=== PATIENT | male | born 1960 | race Caucasian/White ===

== ENCOUNTER 2019-03-12 08:30 | Day surgery (SDC) | payer BC, OTHER ==
--- NOTE | 2019-03-08 22:45 | HP ---
DATE OF ADMISSION: 03/12/2019 HISTORY OF PRESENT ILLNESS: This is a 58-year-old male referred from Dr. Gallardo for colonoscopy because of family history of colon cancer occurring in his mother. Last colonoscopy done by Dr. Gallardo in 2010 showed diminutive polyp. The patient has no symptoms, no rectal bleeding, and medical problems are well controlled. CURRENT MEDICATIONS: Per medication reconciliation form. ALLERGIES: Consist of the cefaclor, moxifloxacin, exenatide, has hives and dizziness. SOCIAL HISTORY: Never smoked. No alcohol. REVIEW OF SYSTEMS: No chest pain, shortness of breath, cough, hoarseness, wheezing, fainting, weakness, numbness, convulsions. PAST MEDICAL HISTORY: That of asthma, moderate persistence of bladder spasms, chronic maxillary sinus, diabetes type 2, gastroesophageal reflux disease, personal history of colonic polyps, sleep apnea, hypertension, glaucoma, hypothyroid treated, and has use of CPAP. He has had colonoscopy, shoulder surgery, eye surgery, trabeculectomy, cataract extraction. PHYSICAL EXAMINATION: VITAL SIGNS: Reveals blood pressure 146/84, pulse 112, temperature 99, respirations 16, BMI of 40.4, and O2 sats are 82%. GENERAL: Alert and cooperative. EYES, EARS, NOSE, AND THROAT: Unremarkable. NECK: Supple. No nodes. LUNGS: Clear to auscultation and percussion. HEART: Tones regular rate at the time of this examination. ABDOMEN: Soft. No tenderness or guarding. EXTREMITIES: Normal. No cyanosis. No edema. SKIN: Normal texture. MUSCULOSKELETAL: No gross abnormalities. He ambulates without problem. NEUROLOGIC: Cranial nerves 3-12 intact. Behavior, normal activity. He is overweight. LABORATORY DATA: TSH on 12/18 of this year was 3.3, A1c was 7.5. His hemoglobin was 15.8, white count 8.7, platelet count 169,000. His creatinine was 0.89, BUN is 21, and GFR is 87. ASSESSMENT: Family history of colon cancer, for colonoscopy. PLAN: Discussed the procedure, risks, complications. The patient understands and consents. [facility] /[id number]
[~2019-03-12 08:30] MED LIST: Lactated Ringers 1,000 ML IV SCH; Lidocaine 1%/Sod Bicarbonate in NS 8.4% 1 ML Syringe IDERM PRN; Sodium Chloride 0.9% 10 ML Syringe FLUSH PRN
--- NOTE | 2019-03-12 09:00 | PCM.PREANE ---
Preanesthetic Assessment - Procedure Proposed Procedure: colonoscopy - Anesthesia/Transfusion/Family Hx Anesthesia History: Prior Anesthesia Without Reaction Family History of Anesthesia Reaction: No Transfusion History: No Prior Transfusion(s) - Review of Systems General: No Symptoms Pulmonary: No Symptoms Cardiovascular: No Symptoms Gastrointestinal: No Symptoms Neurological: No Symptoms Other: Reports: Diabetes, Thyroid Problems, Sinus Problem (getting over sinus infection now) - Physical Assessment NPO Status Date: 03/11/19 NPO Status Time: 23:55 Vital Signs: 147/89 98 99% 16 99.3 Height: 5 ft 11 in Weight: 127.822 kg ASA Class: 3 Mental Status: Alert & Oriented x3 Airway Class: Mallampati = 2 Dentition: Reports: Normal Dentition Thyro-Mental Finger Breadths: 3 Mouth Opening Finger Breadths: 2 ROM/Head Extension: Full Lungs: Clear to Auscultation, Normal Respiratory Effort - Allergies Allergies/Adverse Reactions: Allergies Allergy/AdvReac Type Severity Reaction Status Date / Time cefaclor [From Ceclor] Allergy Hives Verified 03/11/19 13:14 exenatide [From Bydureon] Allergy Dizziness Verified 03/11/19 13:14 moxifloxacin [From Avelox] Allergy Anaphylactic Verified 03/11/19 13:14 Shock - Blood Blood Available: No - Acknowledgements Anesthesia Type Planned: MAC Pt an Appropriate Candidate for the Planned Anesthesia: Yes Alternatives and Risks of Anesthesia Discussed w Pt/Guardian: Yes Pt/Guardian Understands and Agrees with Anesthesia Plan: Yes PreAnesthesia Questionnaire HEENT History: Reports: Allergic Rhinitis, Cataract, Glaucoma, Impaired Vision, Sinusitis, Other (See Below) Other HEENT History: pharyngitis, eustachian tube dysfunction, myopia, trabeculectomy, wears glasses Cardiovascular History: Reports: Hypertension, Other (See Below) Other Cardiovascular History: tachycardia Respiratory History: Reports: Asthma (uses inhaler with illness-), Sleep Apnea, SOB, Other (See Below) Other Respiratory History: cough, URI Gastrointestinal History: Reports: Colon Polyp Genitourinary History: Reports: BPH, Other (See Below) Other Genitourinary History: hematuria, incontinence, bladder spasms 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 Musculoskeletal History: Reports: Other (See Below) Other Musculoskeletal History: sciatica, joint pain, rotator cuff sprain, plantar fasical fibromatosis Neurological History: Reports: None Psychiatric History: Reports: Other (See Below) Other Psychiatric History: hypersomnia Endocrine/Metabolic History: Reports: Diabetes, Type II, Hypothyroidism, Obesity /BMI 30+ Hematologic History: Reports: None Immunologic History: Reports: None Oncologic (Cancer) History: Reports: None Dermatologic History: Reports: Other (See Below) Other Dermatologic History: keloid scar, rosacea, rash - Past Surgical History Head Surgeries/Procedures: Reports: None HEENT Surgical History: Reports: Cataract Surgery, Eye Surgery Cardiovascular Surgical History: Reports: None Respiratory Surgical History: Reports: None GI Surgical History: Reports: Colonoscopy Female Surgical History: Reports: None Male Surgical History: Reports: None Endocrine Surgical History: Reports: None Neurological Surgical History: Reports: None Musculoskeletal Surgical History: Reports: None Oncologic Surgical History: Reports: None - SUBSTANCE USE Smoking Status *Q: Never Smoker Tobacco Use Within Last Twelve Months: No Second Hand Smoke Exposure: No Days Per Week of Alcohol Use: 0 Recreational Drug Use History: No - HOME MEDS Home Medications: Home Meds Albuterol Sulfate [Albuterol Sulfate Hfa] 2 puff INH Q4H PRN 03/11/19 [History] Aspirin [Lamoure Aspirin] 81 mg PO DAILY 03/11/19 [History] Bimatoprost [Lumigan 0.03% Ophth Soln] 1 drop EYEBOTH BID 03/11/19 [History] Brinzolamide/Brimonidine Tart [Simbrinza 1%-0.2% Eye Drops] 1 drop EYEBOTH TID 03/11/19 [History] Budesonide/Formoterol [Symbicort 160-4.5 MCG] 2 puff INH BID 03/11/19 [History] Cyclobenzaprine [Flexeril] 10 mg PO TID PRN 03/11/19 [History] Dutasteride/Tamsulosin HCl [Dutasteride-Tamsulosin 0.5-0.4] 1 each PO DAILY 03/19 [History] Empagliflozin [Jardiance] 25 mg PO QAM 03/11/19 [History] Enalapril [Vasotec] 10 mg PO BID 03/11/19 [History] Fluticasone Propionate [Flonase] 1 dose NASBOTH DAILY 03/11/19 [History] Insulin Glargine,Hum.Rec.Anlog [Lantus Solostar] 68 units SQ BEDTIME 03/11/19 [ History] Levothyroxine [Synthroid] 50 mcg PO DAILY 03/11/19 [History] Loratadine [Claritin] 10 mg PO DAILY 03/11/19 [History] Montelukast [Singulair] 10 mg PO DAILY 03/11/19 [History] Netarsudil Mesylate [Rhopressa] 1 drop EYEBOTH BEDTIME 03/11/19 [History] Omeprazole Magnesium [Prilosec Otc] 20 mg PO DAILY 03/11/19 [History] Oxybutynin 5 mg PO DAILY 03/11/19 [History] Rosuvastatin [Crestor] 10 mg PO DAILY 03/11/19 [History] amLODIPine [Norvasc] 5 mg PO DAILY 03/11/19 [History] cycloSPORINE [Restasis] 1 drop EYEBOTH BID 03/11/19 [History] guaiFENesin [Mucinex] 600 mg PO BID PRN 03/11/19 [History] metroNIDAZOLE [Metrocream] 1 dose TOP ASDIRECTED PRN 03/11/19 [History] sitaGLIPtin Phos/Metformin HCl [Janumet 50-1,000 MG] 1 tab PO BID 03/11/19 [ History] - CURRENT (IN HOUSE) MEDS Current Meds: Current Medications Lactated Ringer's (Ringers, Lactated) 1,000 mls @ 125 mls/hr IV ASDIRECTED ENRIQUETA Stop: 03/12/19 23:00 Lidocaine/Sodium Bicarbonate (Buffered Lidocaine 1% In Ns 8.4%) 0.25 ml IDERM ONETIME PRN PRN Reason: Prior to IV Start Stop: 03/12/19 18:00 Sodium Chloride (Saline Flush) 10 ml FLUSH ASDIRECTED PRN PRN Reason: Keep Vein Open Stop: 03/12/19 18:00
[2019-03-12] MEDS ORDERED: Propofol 200 MG/20 ML SDV ONE ×2 (09:50→10:06)
[2019-03-12] MEDS ORDERED: Midazolam 1 MG/ML 2 ML SDV ONE (09:51)
[2019-03-12] MEDS ORDERED: Lidocaine 1% 4 ML ONE (09:52)
--- NOTE | 2019-03-12 10:20 | PCM.OPNOTE ---
- General Post-Op/Procedure Note Date of Surgery/Procedure: 03/12/19 Operative Procedure(s): colonoscopy to cecum Pre Op Diagnosis: screening colonosocopy Post-Op Diagnosis: Same Anesthesia Technique: MAC Primary Surgeon: Arjun Barriga EBL in mLs: 0 Complications: None Condition: Good
--- NOTE | 2019-03-12 10:27 | PCM48HPAN ---
Post Anesthesia Note - EVALUATION WITHIN 48HRS OF ANESTHETIC Vital Signs in Normal Range: Yes Patient Participated in Evaluation: Yes Respiratory Function Stable: Yes Airway Patent: Yes Cardiovascular Function Stable: Yes Hydration Status Stable: Yes Pain Control Satisfactory: Yes Nausea and Vomiting Control Satisfactory: Yes Mental Status Recovered: Yes Vital Signs: 1020 144/83,96,86, 16, 98.2 Last Vital Signs Temp 37.4 C 03/12/19 08:45 Pulse 98 03/12/19 08:45 Resp 16 03/12/19 08:45 BP 147/89 H 03/12/19 08:45 Pulse Ox 99 03/12/19 08:45
--- NOTE | 2019-03-13 09:17 | OR ---
DATE OF OPERATION: 03/12/2019 SURGEON: Arjun Barriga MD PREOPERATIVE DIAGNOSIS: Family history of colon cancer. POSTOPERATIVE DIAGNOSIS: Family history of colon cancer. OPERATION PERFORMED: Colonoscopy to the cecum with removal of diminutive polyp with cautery snare located at the splenic flexure done under IV sedation. FINDINGS: A small diminutive polyp in the splenic flexure, which was on a small stalk, lassoed to cautery snare, retrieved, and sent to pathology. No angiodysplasias, large tumor masses, ulcerations, diverticula, or notable hemorrhoids. ANESTHESIA: Colonoscopy to the cecum with polypectomy done under IV sedation. DESCRIPTION OF PROCEDURE: The patient taken to the endoscopy room, placed in a supine position, connected monitoring equipment, given IV sedation, and placed in the left lateral position. Perianal area was inspected and it was normal. Rectal exam showed good sphincter tone. A video Olympus colonoscope was then introduced into the rectum and threaded up without problem to the cecum, where the appendicular orifice was noted. Prep was excellent. [place] cleansing score grade A, and the scope was slowly withdrawn showing the cecum, ascending colon, transverse colon, descending colon, sigmoid colon, and rectum. At the splenic flexure, there was a small polyp on a stalk that was lassoed with cautery snare, retrieved, and sent to pathology. It was completely removed cleanly. The patient tolerated the procedure, sent to recovery room in a stable condition, and the specimen sent to pathology in a labeled container. The patient will be followed up with his family doctor. ESTIMATED BLOOD LOSS: MMODAL /[id number]
== END 2019-03-12 11:30 | disposition home or self-care (01) ==
LOC: JD.SDS 08:30
PROVIDERS: ATTEND Surgery
DX: Z12.11 Encounter for screening for malignant neoplasm of colon (principal); D12.3 Benign neoplasm of transverse colon; J45.909 Unspecified asthma, uncomplicated; E11.9 Type 2 diabetes mellitus without complications; K21.9 Gastro-esophageal reflux disease without esophagitis; I10 Essential (primary) hypertension; G47.33 Obstructive sleep apnea (adult) (pediatric); E03.9 Hypothyroidism, unspecified; J45.20 Mild intermittent asthma, uncomplicated; Z88.1 Allergy status to other antibiotic agents; Z88.8 Allergy status to other drugs, medicaments and biological substances; Z86.010 Personal history of colon polyps; Z99.89 Dependence on other enabling machines and devices; Z80.0 Family history of malignant neoplasm of digestive organs
CPT/HCPCS: 45385; J2001; J2250; J2704; J7120; 00812

== ENCOUNTER 2020-02-10 15:41 | Emergency (ER) | payer OTHER ==
--- NOTE | 2020-02-10 16:11 | EDM.PDOC ---
ED HPI GENERAL MEDICAL PROBLEM - General Chief Complaint: Respiratory Problem Stated Complaint: SOB/LOW O2(90)/FEVER(106)/COVID+ Time Seen by Provider: 02/10/20 16:10 - History of Present Illness INITIAL COMMENTS - FREE TEXT/NARRATIVE: 59-year-old male presents the emergency room with shortness of breath fever associated with COVID. Patient became ill developing a cough and upper airway congestion this last Monday. Since that time he has had a progressive course is running fevers as high as 100.6. He describes his inability to clear and cough up secretions. He has a frequent cough. He has been exposed to several people in his orthodoxy that have all tested positive. Patient has significant risk factors with obesity and underlying insulin-dependent type 2 diabetes. Earlier today his oxygen monitor at home measured to 90%. He had a couple hours earlier this afternoon where he thought he was getting worse but then that resolved and at this point he really does not feel that bad except he is got pretty frequent cough. - Related Data Allergies Allergy/AdvReac Type Severity Reaction Status Date / Time cefaclor [From Ceclor] Allergy Hives Verified 02/10/20 15:57 exenatide [From Bydureon] Allergy Dizziness Verified 02/10/20 15:57 moxifloxacin [From Avelox] Allergy Anaphylactic Verified 02/10/20 15:57 Shock Home Meds: Home Meds Albuterol Sulfate [Albuterol Sulfate Hfa] 2 puff INH Q4H PRN 03/11/19 [History] Aspirin [[place] Aspirin] 81 mg PO DAILY 03/11/19 [History] Bimatoprost [Lumigan 0.03% [facility] Soln] 1 drop EYEBOTH BID 03/11/19 [History] Budesonide/Formoterol [Symbicort 160-4.5 MCG] 2 puff INH BID 03/11/19 [History] Dutasteride/Tamsulosin HCl [Dutasteride-Tamsulosin 0.5-0.4] 1 each PO DAILY 03/11/19 [History] Empagliflozin [Jardiance] 25 mg PO QAM 03/11/19 [History] Enalapril [Vasotec] 10 mg PO BID 03/11/19 [History] Fluticasone Propionate [Flonase] 1 dose NASBOTH BID 03/11/19 [History] Insulin Glargine,Hum.Rec.Anlog [Lantus Solostar] 80 units SQ BEDTIME 03/11/19 [History] Levothyroxine [Synthroid] 50 mcg PO DAILY 03/11/19 [History] Loratadine [Claritin] 10 mg PO DAILY 03/11/19 [History] Montelukast [Singulair] 10 mg PO DAILY 03/11/19 [History] Netarsudil Mesylate [Rhopressa] 1 drop EYEBOTH BEDTIME 03/11/19 [History] Omeprazole Magnesium [Prilosec Otc] 20 mg PO DAILY 03/11/19 [History] Oxybutynin 5 mg PO DAILY 03/11/19 [History] Rosuvastatin [Crestor] 10 mg PO DAILY 03/11/19 [History] cycloSPORINE [Restasis] 1 drop EYEBOTH BID 03/11/19 [History] guaiFENesin [Mucinex] 600 mg PO BID PRN 03/11/19 [History] metroNIDAZOLE [Metrocream] 1 dose TOP ASDIRECTED PRN 03/11/19 [History] sitaGLIPtin Phos/Metformin HCl [Janumet 50-1,000 MG] 1 tab PO BID 03/11/19 [History] Doxycycline [Doxycycline Hyclate] 100 mg PO Q12HR 02/10/20 [History] amLODIPine [Norvasc] 5 mg PO DAILY 02/10/20 [History] dexAMETHasone [Dexamethasone] 4 mg PO BID #14 tablet 02/10/20 [Rx] timoloL maleate [Timoptic] 1 drop EYEBOTH BID 02/10/20 [History] Past Medical History HEENT History: Reports: Allergic Rhinitis, Cataract, Glaucoma, Impaired Vision, Sinusitis, Other (See Below) Other HEENT History: pharyngitis, eustachian tube dysfunction, myopia, trabeculectomy, wears glasses Cardiovascular History: Reports: Hypertension, Other (See Below) Other Cardiovascular History: tachycardia Respiratory History: Reports: Asthma (uses inhaler with illness-), Sleep Apnea, SOB, Other (See Below) Other Respiratory History: cough, URI Gastrointestinal History: Reports: Colon Polyp Genitourinary History: Reports: BPH, Other (See Below) Other Genitourinary History: hematuria, incontinence, bladder spasms 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 Musculoskeletal History: Reports: Other (See Below) Other Musculoskeletal History: sciatica, joint pain, rotator cuff sprain, plantar fasical fibromatosis Neurological History: Reports: None Psychiatric History: Reports: Other (See Below) Other Psychiatric History: hypersomnia Endocrine/Metabolic History: Reports: Diabetes, Type II, Hypothyroidism, Obesity/BMI 30+ Hematologic History: Reports: None Immunologic History: Reports: None Oncologic (Cancer) History: Reports: None Dermatologic History: Reports: Other (See Below) Other Dermatologic History: keloid scar, rosacea, rash - Past Surgical History Head Surgeries/Procedures: Reports: None HEENT Surgical History: Reports: Cataract Surgery, Eye Surgery Cardiovascular Surgical History: Reports: None Respiratory Surgical History: Reports: None GI Surgical History: Reports: Colonoscopy Female Surgical History: Reports: None Male Surgical History: Reports: None Endocrine Surgical History: Reports: None Neurological Surgical History: Reports: None Musculoskeletal Surgical History: Reports: None Oncologic Surgical History: Reports: None Social & Family History - Caffeine Use Caffeine Use: Reports: Tea ED ROS GENERAL - Review of Systems Review Of Systems: See Below Constitutional: Reports: Fever, Weakness, Fatigue HEENT: Reports: No Symptoms Respiratory: Reports: Shortness of Breath, Cough Cardiovascular: Reports: Dyspnea on Exertion. Denies: Chest Pain GI/Abdominal: Reports: No Symptoms, Abdominal Pain : Reports: No Symptoms Musculoskeletal: Reports: No Symptoms Skin: Reports: No Symptoms Neurological: Reports: No Symptoms Psychiatric: Reports: No Symptoms ED EXAM, GENERAL - Physical Exam Exam: See Below Exam Limited By: No Limitations General Appearance: Alert, No Apparent Distress, Obese, Other (He is tachypneic with respiratory rate of 24 up to 30 at times however is maintaining good O2 saturation he is mildly tachycardic with a pulse of 110-119) Eye Exam: Bilateral Eye: Normal Inspection Ears: Normal External Exam, Normal Canal, Hearing Grossly Normal, Normal TMs Nose: Normal Inspection, Normal Mucosa, No Blood Throat/Mouth: Normal Inspection, Normal Lips, Normal Oropharynx, Normal Voice, No Airway Compromise Head: Atraumatic, Normocephalic Neck: Normal Inspection, Supple, Non-Tender, Full Range of Motion. No: Lymphadenopathy (L), Lymphadenopathy (R) Respiratory/Chest: No Respiratory Distress, Lungs Clear, Normal Breath Sounds Cardiovascular: Regular Rate, Rhythm, No Edema, No Murmur GI/Abdominal: Normal Bowel Sounds, Soft, Non-Tender Rectal (Males) Exam: No: Rectal Fissure Back Exam: Normal Inspection. No: CVA Tenderness (R) Extremities: Normal Inspection, No Pedal Edema Neurological: Alert, Oriented, Normal Cognition Course - Vital Signs Last Recorded V/S: Last Vital Signs Temp 36.9 C 02/10/20 15:50 Pulse 117 H 02/10/20 15:50 Resp 24 H 02/10/20 15:50 BP Pulse Ox 95 02/10/20 15:50 - Orders/Labs/Meds Orders: Active Orders 24 hr Category Date Time Status EKG Documentation Completion [RC] STAT Care 02/10/20 17:39 Active Chest 1V Frontal [CR] Stat Exams 02/10/20 17:37 Taken Sodium Chloride 0.9% [Normal Saline] 1,000 ml Med 02/10/20 18:00 Active IV ASDIRECTED Medication Orders Sodium Chloride (Normal Saline) 1,000 mls @ 75 mls/hr IV ASDIRECTED ENRIQUETA Labs: Laboratory Tests 02/10/20 02/10/20 02/10/20 Range/Units 18:00 18:00 18:00 WBC 6.03 (4.23-9.07) K/mm3 RBC 5.44 (4.63-6.08) M/mm3 Hgb 15.0 (13.7-17.5) gm/dl Hct 44.0 (40.1-51.0) % MCV 80.9 (79.0-92.2) fl MCH 27.6 (25.7-32.2) pg MCHC 34.1 (32.2-35.5) g/dl RDW Std Deviation 43.0 (35.1-43.9) fL Plt Count 184 (163-337) K/mm3 MPV 9.4 (9.4-12.3) fl Neut % (Auto) 76.4 H (34.0-67.9) % Lymph % (Auto) 13.4 L (21.8-53.1) % [place] % (Auto) 9.0 (5.3-12.2) % Eos % (Auto) 0.7 L (0.8-7.0) Baso % (Auto) 0.2 (0.1-1.2) % Neut # (Auto) 4.61 (1.78-5.38) K/mm3 Lymph # (Auto) 0.81 L (1.32-3.57) K/mm3 [place] # (Auto) 0.54 (0.30-0.82) K/mm3 Eos # (Auto) 0.04 (0.04-0.54) K/mm3 Baso # (Auto) 0.01 (0.01-0.08) K/mm3 PT 10.8 (9.7-11.7) SECONDS INR 1.01 APTT 29 (22-31) SECONDS D-Dimer, Quantitative (0.19-0.50) mg/L Sodium 134 L (136-145) mEq/L Potassium 3.9 (3.5-5.1) mEq/L Chloride 96 L (98-107) mEq/L Carbon Dioxide 23 (21-32) mEq/L Anion Gap 18.9 H (5-15) BUN 13 (7-18) mg/dL Creatinine 1.0 (0.7-1.3) mg/dL Est Cr Clr Drug Dosing 82.62 mL/min Estimated GFR (MDRD) > 60 (>60) mL/min BUN/Creatinine Ratio 13.0 L (14-18) Glucose 102 (80-115) mg/dL Calcium 9.3 (8.5-10.1) mg/dL Ferritin (26-388) ng/ml Total Bilirubin 0.5 (0.2-1.0) mg/dL AST 24 (15-37) U/L ALT 30 (16-63) U/L Alkaline Phosphatase 42 L (46-116) U/L Lactate Dehydrogenase 189 (85-227) U/L Troponin I < 0.017 (0.00-0.056) ng/mL C-Reactive Protein 6.6 H* (<1.0) mg/dL Total Protein 7.2 (6.4-8.2) g/dl Albumin 3.4 (3.4-5.0) g/dl Globulin 3.8 gm/dL Albumin/Globulin Ratio 0.9 L (1-2) 02/10/20 02/10/20 Range/Units 18:00 18:00 WBC (4.23-9.07) K/mm3 RBC (4.63-6.08) M/mm3 Hgb (13.7-17.5) gm/dl Hct (40.1-51.0) % MCV (79.0-92.2) fl MCH (25.7-32.2) pg MCHC (32.2-35.5) g/dl RDW Std Deviation (35.1-43.9) fL Plt Count (163-337) K/mm3 MPV (9.4-12.3) fl Neut % (Auto) (34.0-67.9) % Lymph % (Auto) (21.8-53.1) % [place] % (Auto) (5.3-12.2) % Eos % (Auto) (0.8-7.0) Baso % (Auto) (0.1-1.2) % Neut # (Auto) (1.78-5.38) K/mm3 Lymph # (Auto) (1.32-3.57) K/mm3 [place] # (Auto) (0.30-0.82) K/mm3 Eos # (Auto) (0.04-0.54) K/mm3 Baso # (Auto) (0.01-0.08) K/mm3 PT (9.7-11.7) SECONDS INR APTT (22-31) SECONDS D-Dimer, Quantitative 0.38 (0.19-0.50) mg/L Sodium (136-145) mEq/L Potassium (3.5-5.1) mEq/L Chloride (98-107) mEq/L Carbon Dioxide (21-32) mEq/L Anion Gap (5-15) BUN (7-18) mg/dL Creatinine (0.7-1.3) mg/dL Est Cr Clr Drug Dosing mL/min Estimated GFR (MDRD) (>60) mL/min BUN/Creatinine Ratio (14-18) Glucose (80-115) mg/dL Calcium (8.5-10.1) mg/dL Ferritin 257 (26-388) ng/ml Total Bilirubin (0.2-1.0) mg/dL AST (15-37) U/L ALT (16-63) U/L Alkaline Phosphatase (46-116) U/L Lactate Dehydrogenase (85-227) U/L Troponin I (0.00-0.056) ng/mL C-Reactive Protein (<1.0) mg/dL Total Protein (6.4-8.2) g/dl Albumin (3.4-5.0) g/dl Globulin gm/dL Albumin/Globulin Ratio (1-2) Meds: Medications Generic Name Dose Route Start Last Admin Trade Name Jennifer PRN Reason Stop Dose Admin Sodium Chloride 1,000 mls @ 75 mls/hr 02/10/20 18:00 Normal Saline IV ASDIRECTED ENRQIUETA Discontinued Medications Generic Name Dose Route Start Last Admin Trade Name Freq PRN Reason Stop Dose Admin Sodium Chloride 500 mls @ 999 mls/hr 02/10/20 17:51 02/10/20 18:46 Normal Saline IV 02/10/20 18:21 999 mls/hr .BOLUS ONE Administration - Re-Assessments/Exams Free Text/Narrative Re-Assessment/Exam: 02/10/20 19:42 Chest x-ray shows some subsegmental atelectasis possible scarring not the greatest inspiration and borderline cardiomegaly. Labs consistent with COVID but not very high d-dimer surprised me was normal. With repositioning the patient is respiratory rate would drop from the upper 20s to low 30s to the lower 20s to upper teens. The patient feels much better in a proper position.. This point will discharge home we will start him on dexamethasone 4 mg twice daily for 7 days Departure - Departure Time of Disposition: 19:43 Disposition: Home, Self-Care 01 Clinical Impression: COVID-19 - Discharge Information Forms: ED Department Discharge Additional Instructions: Return to the emergency room with any questions problems or worsening symptoms. You have been started on dexamethasone, this is a steroid, take as directed twice daily for 7 days. Keep a close eye on your blood sugars and your oxygen saturation. Sepsis Event Note (ED) - Evaluation Sepsis Screening Result: Possible Sepsis Risk - Focused Exam Vital Signs: Vital Signs Temp Pulse Resp Pulse Ox 02/10/20 15:50 36.9 C 117 H 24 H 95 - My Orders Last 24 Hours: My Active Orders 02/10/20 17:37 Chest 1V Frontal [CR] Stat 02/10/20 17:39 EKG Documentation Completion [RC] STAT 02/10/20 18:00 Sodium Chloride 0.9% [Normal Saline] 1,000 ml IV ASDIRECTED - Assessment/Plan Last 24 Hours: My Active Orders 02/10/20 17:37 Chest 1V Frontal [CR] Stat 02/10/20 17:39 EKG Documentation Completion [RC] STAT 02/10/20 18:00 Sodium Chloride 0.9% [Normal Saline] 1,000 ml IV ASDIRECTED
[2020-02-10] MEDS ORDERED: Sodium Chloride 0.9% 500 ML IV ONE (17:51)
[2020-02-10] MEDS ORDERED: Sodium Chloride 0.9% 1,000 ML IV SCH (18:00)
== END 2020-02-10 20:10 | disposition home or self-care (01) ==
LOC: JD.ED 15:41
DX: U07.1 COVID-19 (principal); I10 Essential (primary) hypertension; J45.909 Unspecified asthma, uncomplicated; N40.0 Benign prostatic hyperplasia without lower urinary tract symptoms; E11.9 Type 2 diabetes mellitus without complications; E03.9 Hypothyroidism, unspecified; E66.9 Obesity, unspecified; Z68.41 Body mass index [BMI] 40.0-44.9, adult; Z88.1 Allergy status to other antibiotic agents; Z79.82 Long term (current) use of aspirin; Z79.4 Long term (current) use of insulin; Z79.899 Other long term (current) drug therapy
CPT/HCPCS: 36415; 71045; 80053; 82728; 83615; 84484; 85025; 85379; 85610; 85730; 86140; 93005; 99285; J7030; 99283

== ENCOUNTER 2020-02-15 12:00 | Emergency (ER) | payer OTHER ==
[2020-02-15] MEDS ORDERED: Sodium Chloride 0.9% 1,000 ML IV ONE (12:57)
--- NOTE | 2020-02-15 14:19 | EDM.PDOC ---
ED HPI GENERAL MEDICAL PROBLEM - General Chief Complaint: Syncope Stated Complaint: COVID + Time Seen by Provider: 02/15/20 12:35 Source of Information: Reports: Patient, Old Records, RN Notes Reviewed History Limitations: Reports: No Limitations - History of Present Illness INITIAL COMMENTS - FREE TEXT/NARRATIVE: Patient is a 59-year-old male who presents to the ED for his ongoing COVID symptoms, dizziness and dehydration. The patient was diagnosed with COVID 1 week ago on . He states that he was feeling pretty good, was evaluated in the ER on 02/10/2020, and was making some progress. He was started on doxycycline and dexamethasone. He states that he did complete the doxycycline, but ceased use of the dexamethasone 4mg BIDx 7 days upon advice from his primary care provider Dr. Gallardo after 3.5 doses. He states that he is a diabetic, but his blood sugars were controlled throughout the use of dexamethasone. His blood sugar was 113 at home the last time he checked. He notes that he has been eating and drinking okay at home, but he was checking his oxygen saturations appropriately and states he was only getting 91 to 92% on room air at home. 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 He notes he is anxious because she is in the hospital and he is at home by himself. He does state that the dizziness is more of a world spinning dizziness, and does seem to worsen with positional changing. The patient's blood pressure is good at 153/79, O2 sats in the ER have been 94 to 95% on room air, patient's respiratory rate is 20 to 22 breaths/min, and his heart rate is been 70 to 80 bpm. He is in no visible respiratory distress, he is able to complete sentences in their entirety without taking a break. He was afebrile at time of triage at 96.1F. - Related Data Allergies Allergy/AdvReac Type Severity Reaction Status Date / Time cefaclor [From Ceclor] Allergy Hives Verified 02/15/20 14:14 exenatide [From Bydureon] Allergy Dizziness Verified 02/15/20 14:14 moxifloxacin [From Avelox] Allergy Anaphylactic Verified 02/15/20 14:14 Shock Home Meds: Home Meds Albuterol Sulfate [Albuterol Sulfate Hfa] 2 puff INH Q4H PRN 03/11/19 [History] Aspirin [Braxton Aspirin] 81 mg PO DAILY 03/11/19 [History] Bimatoprost [Lumigan 0.03% Ophth Soln] 1 drop EYEBOTH BID 03/11/19 [History] Budesonide/Formoterol [Symbicort 160-4.5 MCG] 2 puff INH BID 03/11/19 [History] Dutasteride/Tamsulosin HCl [Dutasteride-Tamsulosin 0.5-0.4] 1 each PO DAILY 03/11/19 [History] Empagliflozin [Jardiance] 25 mg PO QAM 03/11/19 [History] Enalapril [Vasotec] 10 mg PO BID 03/11/19 [History] Fluticasone Propionate [Flonase] 1 dose NASBOTH BID 03/11/19 [History] Insulin Glargine,Hum.Rec.Anlog [Lantus Solostar] 80 units SQ BEDTIME 03/11/19 [History] Levothyroxine [Synthroid] 50 mcg PO DAILY 03/11/19 [History] Loratadine [Claritin] 10 mg PO DAILY 03/11/19 [History] Montelukast [Singulair] 10 mg PO DAILY 03/11/19 [History] Netarsudil Mesylate [Rhopressa] 1 drop EYEBOTH BEDTIME 03/11/19 [History] Omeprazole Magnesium [Prilosec Otc] 20 mg PO DAILY 03/11/19 [History] Oxybutynin 5 mg PO DAILY 03/11/19 [History] Rosuvastatin [Crestor] 10 mg PO DAILY 03/11/19 [History] cycloSPORINE [Restasis] 1 drop EYEBOTH BID 03/11/19 [History] guaiFENesin [Mucinex] 600 mg PO BID PRN 03/11/19 [History] metroNIDAZOLE [Metrocream] 1 dose TOP ASDIRECTED PRN 03/11/19 [History] sitaGLIPtin Phos/Metformin HCl [Janumet 50-1,000 MG] 1 tab PO BID 03/11/19 [History] Doxycycline [Doxycycline Hyclate] 100 mg PO Q12HR 02/10/20 [History] amLODIPine [Norvasc] 5 mg PO DAILY 02/10/20 [History] dexAMETHasone [Dexamethasone] 4 mg PO BID #14 tablet 02/10/20 [Rx] timoloL maleate [Timoptic] 1 drop EYEBOTH BID 02/10/20 [History] Meclizine [Antivert] 25 mg PO Q6H #20 tab 02/15/20 [Rx] Past Medical History HEENT History: Reports: Allergic Rhinitis, Cataract, Glaucoma, Impaired Vision, Sinusitis, Other (See Below) Other HEENT History: pharyngitis, eustachian tube dysfunction, myopia, trabeculectomy, wears glasses Cardiovascular History: Reports: Hypertension, Other (See Below) Other Cardiovascular History: tachycardia Respiratory History: Reports: Asthma (uses inhaler with illness-), Sleep Apnea, SOB, Other (See Below) Other Respiratory History: cough, URI Gastrointestinal History: Reports: Colon Polyp Genitourinary History: Reports: BPH, Other (See Below) Other Genitourinary History: hematuria, incontinence, bladder spasms [employer] History: Reports: None Musculoskeletal History: Reports: Other (See Below) Other Musculoskeletal History: sciatica, joint pain, rotator cuff sprain, plantar fasical fibromatosis Neurological History: Reports: None Psychiatric History: Reports: Other (See Below) Other Psychiatric History: hypersomnia Endocrine/Metabolic History: Reports: Diabetes, Type II, Hypothyroidism, Obesity/BMI 30+ Hematologic History: Reports: None Immunologic History: Reports: None Oncologic (Cancer) History: Reports: None Dermatologic History: Reports: Other (See Below) Other Dermatologic History: keloid scar, rosacea, rash - Infectious Disease History Infectious Disease History: Reports: Novel Coronavirus - Past Surgical History Head Surgeries/Procedures: Reports: None HEENT Surgical History: Reports: Cataract Surgery, Eye Surgery Cardiovascular Surgical History: Reports: None Respiratory Surgical History: Reports: None GI Surgical History: Reports: Colonoscopy Female Surgical History: Reports: None Male Surgical History: Reports: None Endocrine Surgical History: Reports: None Neurological Surgical History: Reports: None Musculoskeletal Surgical History: Reports: None Oncologic Surgical History: Reports: None Social & Family History - Caffeine Use Caffeine Use: Reports: Tea ED ROS GENERAL - Review of Systems Review Of Systems: Comprehensive ROS is negative, except as noted in HPI. ED EXAM, GENERAL - Physical Exam Exam: See Below Exam Limited By: No Limitations General Appearance: Alert, WD/WN, Mild Distress (pt is breathing somewhat heavy but able to speak in full sentences) Eye Exam: Bilateral Eye: EOMI, Normal Inspection, PERRL Ears: Normal External Exam, Normal Canal, Hearing Grossly Normal, Normal TMs Nose: Normal Inspection Throat/Mouth: Normal Inspection Head: Atraumatic, Normocephalic Neck: Normal Inspection Respiratory/Chest: No Respiratory Distress, Lungs Clear, No Accessory Muscle Use, Chest Non-Tender, Decreased Breath Sounds (diffuse bilaterally) Cardiovascular: Normal Peripheral Pulses, Regular Rate, Rhythm, No Edema, No Murmur Peripheral Pulses: 2+: Radial (L), Radial (R) Extremities: Normal Inspection, Normal Capillary Refill Neurological: Alert, Oriented, Normal Cognition, No Motor/Sensory Deficits Psychiatric: Normal Affect, Normal Mood Skin Exam: Warm, Dry, Intact, Normal Color, No Rash Course - Vital Signs Last Recorded V/S: Last Vital Signs Temp 96.1 F L 02/15/20 12:05 Pulse 90 02/15/20 12:05 Resp 27 H 02/15/20 12:05 BP 142/84 H 02/15/20 12:05 Pulse Ox 96 02/15/20 12:05 - Orders/Labs/Meds Orders: Active Orders 24 hr Category Date Time Status Chest 1V Frontal [CR] Routine Exams 02/15/20 12:50 Taken C-REACTIVE PROTEIN [CHEM] Routine Lab 02/15/20 12:10 Received CBC WITH AUTO DIFF [HEME] Routine Lab 02/15/20 12:10 Received COMPREHENSIVE METABOLIC PN,CMP [CHEM] Routine Lab 02/15/20 12:10 Received D-DIMER QUANTITATIVE [COAG] Routine Lab 02/15/20 12:10 Received FERRITIN [CHEM] Routine Lab 02/15/20 12:10 Received PRO B-TYPE NATRIUR PEPT,BNPPRO [CHEM] Routine Lab 02/15/20 12:10 Received - Re-Assessments/Exams Free Text/Narrative Re-Assessment/Exam: 02/15/20 12:40 Pt will have IV placed, basic labs taken for comparison at this time from last ER visit. Chest x-ray to be performed, EKG does appear to have no ST change or other abnormalities. He will be given Meclizine 25mg PO and IV NS at 500mls/hr for now. 02/15/20 13:55 Patient's labs have resulted, CBC is essentially within normal limits, metabolic panel shows a slightly low sodium of 135, glucose is 181, creatinine 1.02, BNP is 113, CRP is 4.6, and ferritin is 4.22 review of his labs from his last visit demonstrate a CRP is 6.6, a ferritin of 257. Liver enzymes have been okay on both visits. The patient's chest x-ray shows no interval change from his previous visit at 02/10/2020. Departure - Departure Time of Disposition: 14:31 Disposition: Home, Self-Care 01 Condition: Good Clinical Impression: COVID-19, Vertigo - Discharge Information *PRESCRIPTION DRUG MONITORING PROGRAM REVIEWED*: No *COPY OF PRESCRIPTION DRUG MONITORING REPORT IN PATIENT LINDA: No Instructions: Dizziness, [id number], Prevent the Spread of COVID-19 if You Are Sick - [facility] Referrals: Jose Gallardo MD [Primary Care Provider] - Forms: ED Department Discharge Additional Instructions: You were seen in the ER today for ongoing and/or worsening respiratory symptoms and dizziness/dehydration Your chest x-ray showed signs of a viral pneumonia at this time; but this was no worse than it was on your previous visit. Your oxygen levels were good at 94- 95% on room air. Please try to increase your oral fluid intake, and eat multiple small meals throughout the day, to keep yourself healthy. You need to keep yourself nourished in order to fight off this disease. You can try a liquid diet like gatorade/powerade as well to get your electrolytes. You may take 500 mg Tylenol every hours 6 hours for pain/fever relief. Do not exceed 4000 mg Tylenol in a 24-hour time span. However, running a fever is your body's natural response to illness, and it allows the body to develop antibodies to disease, we are recommending trying to limit the use of Tylenol as much as possible to allow your body's natural immune response. Recommend you obtain a pulse oximeter and monitor your oxygen levels at home, you should place the monitor on your finger, and sit in a calm, quiet position for a few minutes and then record the number that is on the screen. If this consistently below 90% on room air without movement, this would be cause for concern to come back to the hospital for further management of your COVID-19 disease. Your dizziness was most likely related to slight dehydration and vertigo. You were given a dose of meclizine and some IV fluids in the ER, and this seemed to help relieve some of your symptoms. You should continue to use the meclizine 1 tab every 6 hours as needed for further dizziness. You may want to continue the dexamethasone that was prescribed to you previously. If you do not like taking it 2 times a day, you may take 1-1/2 tablets or 6 mg daily until gone. Sepsis Event Note (ED) - Evaluation Sepsis Screening Result: No Definite Risk - Focused Exam Vital Signs: Vital Signs Temp Pulse Resp BP Pulse Ox 02/15/20 12:05 96.1 F L 90 27 H 142/84 H 96 - My Orders Last 24 Hours: My Active Orders 02/15/20 12:10 C-REACTIVE PROTEIN [CHEM] Routine CBC WITH AUTO DIFF [HEME] Routine COMPREHENSIVE METABOLIC PN,CMP [CHEM] Routine D-DIMER QUANTITATIVE [COAG] Routine FERRITIN [CHEM] Routine PRO B-TYPE NATRIUR PEPT,BNPPRO [CHEM] Routine 02/15/20 12:50 Chest 1V Frontal [CR] Routine - Assessment/Plan Last 24 Hours: My Active Orders 02/15/20 12:10 C-REACTIVE PROTEIN [CHEM] Routine CBC WITH AUTO DIFF [HEME] Routine COMPREHENSIVE METABOLIC PN,CMP [CHEM] Routine D-DIMER QUANTITATIVE [COAG] Routine FERRITIN [CHEM] Routine PRO B-TYPE NATRIUR PEPT,BNPPRO [CHEM] Routine 02/15/20 12:50 Chest 1V Frontal [CR] Routine
== END 2020-02-15 15:20 | disposition home or self-care (01) ==
LOC: SUPCPDRO 12:00 → JD.ED 12:00
DX: U07.1 COVID-19 (principal); R42 Dizziness and giddiness; E86.0 Dehydration; I10 Essential (primary) hypertension; J45.909 Unspecified asthma, uncomplicated; E03.9 Hypothyroidism, unspecified; E11.9 Type 2 diabetes mellitus without complications; E66.9 Obesity, unspecified; Z88.1 Allergy status to other antibiotic agents; Z68.41 Body mass index [BMI] 40.0-44.9, adult; Z79.82 Long term (current) use of aspirin; Z79.4 Long term (current) use of insulin; Z79.899 Other long term (current) drug therapy
CPT/HCPCS: 36415; 71045; 80053; 82728; 83880; 85025; 85379; 86140; 99284; A9270; J7030; 93010; 99283